=== PATIENT | male | born 1975 | race Caucasian/White ===

== ENCOUNTER 2020-12-19 13:02 | Emergency (ER) | payer SELFPAY ==
[~2020-12-19] VITALS: Ht 180.3 cm; Wt 195.2 kg
[2020-12-19] MEDS ORDERED: IV NORMAL SALINE 1,000ML 1,000 ML IV ONE (13:15)
--- NOTE | 2020-12-19 13:28 | PHYS DOC ---
General Adult EDM: Chief Complaint: CHEST PAIN HPI: HPI: 45-year-old male presents with chest pain. He states that he has been having chest pain since last night. It is an intermittent pain that describes as a cramping on the left side. He denies shortness of breath or diaphoresis. He had more episodes today at work and became concerned so came to emergency room. He also complains of an intermittent electrical type pain in the bottom of his left foot. He has had this for several weeks and it seems to be random. Sometimes it happens when he is walking sometimes it happens when he is just sitting around. He has been taking his medications as prescribed. He denies diabetes. Denies fever or chills. Review of Systems: Review of Systems: Constitutional: Denies fever or chills Eyes: Denies change in visual acuity HENT: Denies nasal congestion or sore throat Respiratory: Denies cough or shortness of breath Cardiovascular: Chest pain GI: Denies abdominal pain, nausea, vomiting, bloody stools or diarrhea : Denies dysuria Musculoskeletal: Left foot pain Integument: Denies rash Neurologic: Denies headache, focal weakness or sensory changes Endocrine: Denies polyuria or polydipsia Lymphatic: Denies swollen glands Psychiatric: Denies depression or anxiety Current Medications: Current Meds: Current Medications Medications (Trade) Dose Ordered Sig/Nilda Start Time Stop Time Status Last Admin Dose Admin Sodium Chloride 1,000 ml @ 1,000 mls/hr 1X ONCE 12/19/20 13:15 12/19/20 14:14 UNV Physical Exam: PE: Constitutional: Well developed, well nourished, morbidly obese, no acute distress, non-toxic appearance. [] HENT: Normocephalic, atraumatic, bilateral external ears normal, oropharynx moist, no oral exudates, nose normal. [] Eyes: PERRLA, EOMI, conjunctiva normal, no discharge. [] Neck: Normal range of motion, no tenderness, supple, no stridor. [] Cardiovascular: Heart rate regular rhythm, no murmur [] Lungs & Thorax: Bilateral breath sounds clear to auscultation [] Abdomen: Bowel sounds normal, soft, no tenderness, no masses, no pulsatile masses. [] Skin: Warm, dry, no erythema, no rash. [] Back: No tenderness, no CVA tenderness. [] Extremities: No tenderness, no cyanosis, no clubbing, ROM intact, no edema. No obvious evidence of a problem with the left foot [] Neurologic: Alert and oriented X 3, normal motor function, normal sensory function, no focal deficits noted. [] Psychologic: Affect normal, judgement normal, mood anxious. [] EKG: EKG: Sinus rhythm, rate 84, normal axis, no ST elevation or depression. [] Radiology/Procedures: Radiology/Procedures: [] Impressions: EXAM: CHEST 1 VIEW History: Chest pain COMPARISON: None available. TECHNIQUE: Single portable radiograph of the chest FINDINGS: The cardiac silhouette is unremarkable. Faint airspace opacities bilateral lungs likely atelectasis or infiltrates. The costophrenic sulci are clear and well demarcated. IMPRESSION: Faint airspace opacities bilateral lungs likely atelectasis or infiltrates. Electronically signed by: Alberto Franks MD (12/19/2020 2:19 PM) [id number] DICTATED AND SIGNED BY: ALBERTO FRANKS MD DATE: 12/19/201416 CC: PADMINI BEAL MD; JANES GONZALEZ DO ~MTH0 0 Heart Score: C/O Chest Pain: Yes HEART Score for Chest Pain: HEART Score for Chest Pain Response (Comments) Value History Slighlty/Non-Suspicious 0 ECG Normal 0 Age < 45 0 Risk Factors 1 or 2 Risk Factors 1 Troponin < Normal Limit 0 Total 1 Risk Factors: Risk Factors: DM, Current or recent (<one month) smoker, HTN, HLP, family history of CAD, obesity. Risk Scores: Score 0 - 3: 2.5% MACE over next 6 weeks - Discharge Home Score 4 - 6: 20.3% MACE over next 6 weeks - Admit for Clinical Observation Score 7 - 10: 72.7% MACE over next 6 weeks - Early Invasive Strategies Course & Med Decision Making: Course & Med Decision Making Pertinent Labs and Imaging studies reviewed. (See chart for details) Patient's EKG is unremarkable. His labs are unremarkable. His troponin is negative. His chest x-ray shows mild possible atelectasis. The patient's labs also do not support the diagnosis of pneumonia. The patient is stable for discharge at this time. [] Dragon Disclaimer: Dragon Disclaimer: This electronic medical record was generated, in whole or in part, using a voice recognition dictation system. Departure Departure: Impression: Primary Impression: Chest pain Qualified Codes: R07.9 - Chest pain, unspecified Disposition: 01 HOME / SELF CARE / HOMELESS Condition: STABLE Referrals: PADMINI BEAL MD (PCP) Patient Instructions: Chest Pain (Nonspecific), [id number] JANES GONZALEZ DO Dec 19, 2020 13:28
[2020-12-19 14:03] VITALS: BP 133/82
[2020-12-19 14:08] LABS: BASO # 0.1 x10^3/uL (0.0-0.2); BASO % 2 % (0-3); EOS # 0.3 x10^3/uL (0.0-0.7); EOS % 3 % (0-3); HEMATOCRIT 42.9 % (39.0-53.0); HEMOGLOBIN 14.6 g/dL (13.0-17.5); LYMPH # 1.3 x10^3/uL (1.0-4.8); LYMPH % 13 % (24-48); MEAN CORPUSCULAR HEMOGLOBIN 30 pg (25-35); MEAN CORPUSCULAR HGB CONC 34 g/dL (31-37); MEAN CORPUSCULAR VOLUME 88 fL (79-100); MONO # 0.6 x10^3/uL (0.0-1.1); MONO % 6 % (0-9); NEUT # 7.7 x10^3uL (1.8-7.7); NEUT % 77 % (31-73); PLATELET COUNT 262 x10^3/uL (140-400); RED BLOOD COUNT 4.87 x10^6/uL (4.30-5.70); RED CELL DISTRIBUTION WIDTH 14.1 % (11.5-14.5); WHITE BLOOD COUNT 10.1 x10^3/uL (4.0-11.0)
--- NOTE | 2020-12-19 14:14 | EKG ---
[address] [address] Test Date: 2020-12-19 Test Time: 13:11:42 Pat Name: HANG CALIXTO Department: Room: Gender: M Director Service: : 1975 Requested By: JANES GONZALEZ Order Number: [id number] Reading MD: Measurements Intervals [place] Rate: 84 P: 38 [place]: 162 QRS: 40 QRSD: 98 T: 54 QT: 354 QTc: 421 Interpretive Statements SINUS RHYTHM NORMAL ECG RI6.02 No previous ECG available for comparison
[2020-12-19 14:15] LABS: CALCIUM 8.9 mg/dL (8.5-10.1); CREATININE 0.7 mg/dL (0.7-1.3); GFR 122.5; POTASSIUM 3.8 mmol/L (3.5-5.1)
[2020-12-19 14:21] LABS: ALBUMIN 3.6 g/dL (3.4-5.0); ALBUMIN/GLOBULIN RATIO 1.1 (1.0-1.7); TOTAL BILIRUBIN 0.4 mg/dL (0.2-1.0); TOTAL PROTEIN 6.9 g/dL (6.4-8.2)
--- NOTE | 2020-12-19 14:22 | RAD ---
EXAM: CHEST 1 VIEW History: Chest pain COMPARISON: None available. TECHNIQUE: Single portable radiograph of the chest FINDINGS: The cardiac silhouette is unremarkable. Faint airspace opacities bilateral lungs likely at electasis or infiltrates. The costophrenic sulci are clear and well demarcated. IMPRESSION: Faint airspace opacities bilateral lungs likely atelectasis or infiltrates. Electronically signed by: Alberto Franks MD (12/19/2020 2:19 PM) [id number]
== END 2020-12-19 15:45 | disposition home or self-care (01) ==
LOC: ER 13:02
DX: R07.89 Other chest pain (principal)
CPT/HCPCS: 36415; 71045; 80053; 84484; 85025; 93005; 96360; 99285; J7030

== ENCOUNTER 2021-01-04 12:32 | Emergency (ER) | payer BC ==
[~2021-01-04] VITALS: Ht 180.3 cm; Wt 194.9 kg
--- NOTE | 2021-01-04 12:57 | PHYS DOC ---
Past History Past Medical History: No Pertinent History (THIEN REYNOLDS APRN) Alcohol Use: None (THIEN REYNOLDS APRN) General Adult EDM: Chief Complaint: CHEST PAIN HPI: HPI: Patient is a 45-year-old male who presents with chest pain for 2 days. Patient reports pain is left chest, sharp and intermittent. Denies taking anything for pain at home. Denies anything making the pain worse or better. Patient states "I did have nitro at home but I did not take it for the pain". Patient is denying shortness of breath. Patient has a history of hypertension, CHF, arrhythmias. (THIEN REYNOLDS APRN) Review of Systems: Review of Systems: Constitutional: Denies fever or chills Eyes: Denies change in visual acuity HENT: Denies nasal congestion or sore throat Respiratory: Reports productive cough, denies shortness of breath Cardiovascular: Reports left-sided chest pain GI: Denies abdominal pain, nausea, vomiting, bloody stools or diarrhea : Denies dysuria Musculoskeletal: Denies back pain or joint pain Integument: Denies rash Neurologic: Denies headache, focal weakness or sensory changes Endocrine: Denies polyuria or polydipsia Lymphatic: Denies swollen glands Psychiatric: Denies depression or anxiety (THIEN REYNOLDS APRN) Allergies: Allergies: Allergies Coded Allergies Type Severity Reaction Last Updated Verified No Known Drug Allergies 12/19/20 No (THIEN REYNOLDS APRN) Physical Exam: PE: Constitutional: Well developed, well nourished, no acute distress, non-toxic appearance. [] HENT: Normocephalic, atraumatic, bilateral external ears normal, oropharynx moist, no oral exudates, nose normal. [] Eyes: PERRLA, EOMI, conjunctiva normal, no discharge. [] Neck: Normal range of motion, no tenderness, supple, no stridor. [] Cardiovascular:Heart rate regular rhythm, no murmur [] Lungs & Thorax: Bilateral breath sounds clear to auscultation [] Abdomen: Bowel sounds normal, soft, no tenderness, no masses, no pulsatile masses. [] Skin: Warm, dry, no erythema, no rash. [] Back: No tenderness, no CVA tenderness. [] Extremities: No tenderness, no cyanosis, no clubbing, ROM intact, no edema. [] Neurologic: Alert and oriented X 3, normal motor function, normal sensory function, no focal deficits noted. [] Psychologic: Affect normal, judgement normal, mood normal. [] (THIEN REYNOLDS APRN) EKG: EKG: [] Sinus rhythm, heart rate 84 bpm. At 1240 Sinus rhythm, heart rate 76 bpm. At 1310 (THIEN REYNOLDS APRN) Radiology/Procedures: Radiology/Procedures: [] (THIEN REYNOLDS APRN) Heart Score: C/O Chest Pain: Yes HEART Score for Chest Pain: HEART Score for Chest Pain Response (Comments) Value History Moderately Suspicious 1 ECG Normal 0 Age < 45 0 Risk Factors 1 or 2 Risk Factors 1 Troponin < Normal Limit 0 Total 2 Risk Factors: Risk Factors: DM, Current or recent (<one month) smoker, HTN, HLP, family history of CAD, obesity. Risk Scores: Score 0 - 3: 2.5% MACE over next 6 weeks - Discharge Home Score 4 - 6: 20.3% MACE over next 6 weeks - Admit for Clinical Observation Score 7 - 10: 72.7% MACE over next 6 weeks - Early Invasive Strategies (THIEN REYNOLDS APRN) Course & Med Decision Making: Course & Med Decision Making Pertinent Labs and Imaging studies reviewed. (See chart for details) [] 45-year-old male presents with chest pain for 2 days. Pain is reported as left sided, sharp, intermittent. Patient reports that she has a prescription for nitro, but denies taking it at home. Patient was reporting chest pain while I was evaluating him. I had a repeat EKG which showed normal sinus rhythm and no changes compared to the first EKG. patient given 324 of aspirin. Tox screen is negative. BNP was 211. Troponin is negative. All other labs unremarkable. Chest x-ray is negative for acute abnormality. Heart score of 2. Discussed results with patient. Instructed patient to call PCP tomorrow make a follow-up appointment for further management and evaluation. Patient is hemodynamically stable and able to ambulate on his own. (REYNOLDSTHIEN Disclaimer: Konrad Disclaimer: This electronic medical record was generated, in whole or in part, using a voice recognition dictation system. (THIEN REYNOLDS APRN) Attending Co-Sign The patient was seen and interviewed as well as examined at the bedside. The chart was reviewed. The case was discussed. Agree with the plan of care. (JANES GONZALEZ DO) Departure Departure: Impression: Primary Impression: Chest pain Qualified Codes: R07.9 - Chest pain, unspecified Disposition: HOME / SELF CARE / HOMELESS Condition: STABLE Referrals: PADMINI BEAL MD (PCP) Patient Instructions: Chest Pain (Nonspecific), [id number] Additional Instructions: You were seen in the emergency room for chest pain. Your troponin was negative. Your EKG was negative. Chest x-ray was negative. Your BNP was slightly elevated at 211. All of your other labs were unremarkable. Please call your PCP in the morning and make a follow-up appointment for further management. Return emergency room if you have worsening symptoms or concerns. EMERGENCY DEPARTMENT GENERAL DISCHARGE INSTRUCTIONS Thank you for coming to [facility] (ED) today and trusting us with you care. We trust that you had a positivie experience in our Emergency Department. If you wish to speak to the department management, you may call the director at [phone]. YOUR FOLLOW UP INSTRUCTIONS ARE FOLLOWS: 1. Do you have a private Doctor? If you do not have a private doctor, please ask for a resource list of physicians or clinics that may be able to assist you with fo llow up care. 2. The Emergency Physician has interpreted your x-rays. The X-Ray specialist will also review them. If there is a change in the findings, you will be notified in 48 hours when at all possible. 3. A lab test or culture has been done, your results will be reviewed and you will be notified if you need a change in treatment. ADDITIONAL INSTRUCTIONS AND INFORMATION: 1. Your care today has been supervised by a physician who is specially trained in emergency care. Many problems require more than one evaluation for a complete diagnosis and treatment. We recommend that you schedule your follow up appointment as recommended to ensure complete treatment of you illness or injury. If you are unable to obtain follow up care and continue to have a problem, or if your condition worsens, we recommend that you return to the ED. 2. We are not able to safely determine your condition over the phone nor are we able to give sound medical advice over the phone. For these safety reasons, if you call for medical advice we will ask you to come to the ED for further evaluation. 3. If you have any questions regarding these discharge instructions please call the ED at [phone]. SAFETY INFORMATION: In the interest of safety, wellness, and injury prevention; we encourage you to wear your sealbelt, if you smoke; quite smoking, and we encourage family to use a protecti ve helmet for bicycling and other sporting events that present an increased risk for head injury. IF YOUR SYMPTOMS WORSEN OR NEW SYMPTOMS DEVELOP, OR YOU HAVE CONCERNS ABOUT YOUR CONDITION; OR IF YOUR CONDITION WORSENS WHILE YOU ARE WAITING FOR YOUR FOLLOW UP APPOINTMENT; EITHER CONTACT YOUR PRIMARY CARE DOCTOR, THE PHYSICIAN WHOSE NAME AND NUMBER YOU WERE GIVEN, OR RETURN TO THE ED IMMEDIATELY. THIEN REYNOLDS APRN Jan 04, 2021 12:57 JANES GONZALEZ DO Jan 05, 2021 06:20
--- NOTE | 2021-01-04 13:12 | RAD ---
Single view chest dated 01/04/2021 1:09 PM: COMPARISON: 12/19/2020 Clinical Indication: Chest pain. Findings: Single upright portable exam of the chest was performed. Lung volumes are low, limiting evaluation. T here is some hazy perihilar opacities could be artifactual. No consolidation or pleural effusion. No pneumothorax.. IMPRESSION: Limited exam. No apparent acute abnormality. Electronically signed by: Tushar Potts MD (01/04/2021 1:10 PM) [id number]
[2021-01-04] MEDS ORDERED: ASPIRIN CHEWABLE 81 MG TABLET. PO ONE (13:15)
[2021-01-04] MEDS ORDERED: NITROGLYCERIN SUBLINGUAL 0.4 MG BOTTLE OF 25. SL PRN (13:15)
[2021-01-04 13:24] LABS: BASO % 0 % (0-3); EOS # 0.3 x10^3/uL (0.0-0.7); EOS % 3 % (0-3); HEMATOCRIT 44.6 % (39.0-53.0); HEMOGLOBIN 15.2 g/dL (13.0-17.5); LYMPH # 1.3 x10^3/uL (1.0-4.8); LYMPH % 13 % (24-48); MEAN CORPUSCULAR HEMOGLOBIN 30 pg (25-35); MEAN CORPUSCULAR HGB CONC 34 g/dL (31-37); MEAN CORPUSCULAR VOLUME 89 fL (79-100); MONO # 0.5 x10^3/uL (0.0-1.1); MONO % 5 % (0-9); NEUT # 7.6 x10^3uL (1.8-7.7); NEUT % 79 % (31-73); PLATELET COUNT 283 x10^3/uL (140-400); RED BLOOD COUNT 5.02 x10^6/uL (4.30-5.70); RED CELL DISTRIBUTION WIDTH 14.3 % (11.5-14.5); WHITE BLOOD COUNT 9.7 x10^3/uL (4.0-11.0)
[2021-01-04 13:38] LABS: CALCIUM 9.1 mg/dL (8.5-10.1); CREATININE 0.7 mg/dL (0.7-1.3); GFR 122.5; POTASSIUM 4.4 mmol/L (3.5-5.1)
[2021-01-04 13:38] LABS: BARBITURATES NEG (NEG); BENZODIAZEPINES NEG (NEG); CANNABINOIDS NEG (NEG); COCAINE NEG (NEG); METHADONE NEG (NEG); OPIATES NEG (NEG); PHENCYCLIDINE NEG (NEG)
[2021-01-04 13:39] LABS: AMPHETAMINE/METHAMPHETAMINE NEG (NEG)
[2021-01-04 13:51] LABS: ALBUMIN/GLOBULIN RATIO 1.5 (1.0-1.7); MAGNESIUM 1.9 mg/dL (1.8-2.4); TOTAL BILIRUBIN 0.4 mg/dL (0.2-1.0); TOTAL PROTEIN 6.6 g/dL (6.4-8.2)
[2021-01-04 14:07] LABS: BILIRUBIN,URINE NEG (NEG); CLARITY,URINE CLEAR; COLOR,URINE YELLOW; GLUCOSE,URINE NEG (NEG); NITRITE,URINE NEG (NEG); UROBILINOGEN,URINE 0.2 mg/dL (0.2 mg/dL)
[2021-01-04 14:08] LABS: RBC,URINE OCC /HPF (0-2)
[2021-01-04 14:09] LABS: BACTERIA,URINE 0 /HPF (0-FEW); SQUAMOUS EPITHELIAL CELL,UR FEW /LPF; WBC,URINE OCC /HPF (0-4)
[2021-01-04 15:07] VITALS: BP 129/80
--- NOTE | 2021-01-05 06:28 | EKG ---
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
--- NOTE | 2021-01-05 06:29 | EKG ---
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
== END 2021-01-04 15:12 | disposition home or self-care (01) ==
LOC: ER 12:32
DX: R07.89 Other chest pain (principal); R05 Cough; I11.0 Hypertensive heart disease with heart failure; I50.9 Heart failure, unspecified
CPT/HCPCS: 36415; 71045; 80053; 80307; 81001; 83735; 83880; 84484; 85025; 93005; 99285

== ENCOUNTER 2021-01-13 12:07 | Observation (INO) | payer BC ==
[~2021-01-13] VITALS: Ht 180.3 cm; Wt 197.8 kg
[2021-01-13] MEDS ORDERED: ASPIRIN CHEWABLE 81 MG TABLET. PO ONE (12:15)
[2021-01-13] MEDS ORDERED: NITROGLYCERIN SUBLINGUAL 0.4 MG BOTTLE OF 25. SL PRN (13:00)
--- NOTE | 2021-01-13 13:00 | RAD ---
EXAM: Chest, single view. HISTORY: Chest pain. COMPARISON: None. FINDINGS: A frontal view of the chest is obtained. There is stable diffuse central predominant increa sed interstitial opacity. There is no consolidation, pleural effusion or pneumothorax. There is a sta ble prominent cardiac silhouette. IMPRESSION: Stable central predominant increased interstitial opacity suggesting interstitial infiltr ate. Electronically signed by: Dayana Fernandes MD (01/13/2021 12:58 PM) [id number]
--- NOTE | 2021-01-13 13:13 | EKG ---
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
[2021-01-13 13:22] LABS: BASO # 0.1 x10^3/uL (0.0-0.2); BASO % 1 % (0-3); EOS # 0.3 x10^3/uL (0.0-0.7); EOS % 4 % (0-3); HEMATOCRIT 41.3 % (39.0-53.0); HEMOGLOBIN 14.2 g/dL (13.0-17.5); LYMPH # 1.5 x10^3/uL (1.0-4.8); LYMPH % 17 % (24-48); MEAN CORPUSCULAR HEMOGLOBIN 30 pg (25-35); MEAN CORPUSCULAR HGB CONC 34 g/dL (31-37); MEAN CORPUSCULAR VOLUME 88 fL (79-100); MONO # 0.6 x10^3/uL (0.0-1.1); MONO % 7 % (0-9); NEUT # 6.2 x10^3uL (1.8-7.7); NEUT % 72 % (31-73); PLATELET COUNT 283 x10^3/uL (140-400); RED BLOOD COUNT 4.68 x10^6/uL (4.30-5.70); RED CELL DISTRIBUTION WIDTH 14.3 % (11.5-14.5); WHITE BLOOD COUNT 8.6 x10^3/uL (4.0-11.0)
[2021-01-13 13:31] LABS: CALCIUM 8.7 mg/dL (8.5-10.1); CREATININE 0.6 mg/dL (0.7-1.3); GFR 146.4
[2021-01-13 13:44] LABS: ALBUMIN 3.5 g/dL (3.4-5.0); ALBUMIN/GLOBULIN RATIO 1.4 (1.0-1.7); TOTAL BILIRUBIN 0.2 mg/dL (0.2-1.0)
--- NOTE | 2021-01-13 14:48 | PHYS DOC ---
Past History Past Medical History: No Pertinent History Additional Past Medical Histor: CHF POSSIBLY, PER PT Past Surgical History: No Surgical History Alcohol Use: None Adult General Chief Complaint Chief Complaint: CHEST PAIN HPI HPI Patient is a 45-year-old male with past medical history of hypertension and congestive heart failure who presents to the emergency room complaining of substernal chest pressure. Patient states it feels like there is across s ettings on his chest. He gets intermittent shortness of breath. This started this morning. He has had previous episodes like this as well. He states that his legs are swollen. He denies any cough, congestion, fever, chills, sweats. Pain is constant and nothing seems to make it better or worse. Review of Systems Review of Systems Complete ROS is negative unless otherwise documented in HPI Current Medications Current Medications Current Medications Medications (Trade) Dose Ordered Sig/Nilda Start Time Stop Time Status Last Admin Dose Admin Aspirin (Aspirin Chewable) 324 mg 1X ONCE 01/13/21 12:15 01/13/21 12:16 DC 01/13/21 12:44 324 MG Nitroglycerin (Nitrostat) 0.4 mg PRN Q5MIN PRN 01/13/21 13:00 01/13/21 13:57 0.4 MG Allergies Allergies Allergies Coded Allergies Type Severity Reaction Last Updated Verified No Known Drug Allergies 12/19/20 No Physical Exam Physical Exam General: Awake, alert, NAD. Well Nourished, well hydrated. Cooperative, morbid obesity HEENT: Atraumatic, EOMI, PERRL, airway patent, moist oral mucosa Neck: Supple, trachea midline Respiratory: CTA bilaterally, normal effort, no wheezing/crackles CV: RRR, no murmur, cap refill <2, 3+ pitting edema GI: Soft, nondistended, nontender, no masses MSK: No obvious deformities Skin: Warm, dry, intact Neuro: A&O x3, speech NL, sensory and motor grossly intact, no focal deficits Psych: Normal affect, normal mood, not suicidal or homicidal Current Patient Data Vital Signs Vital Signs Date Time Temp Pulse Resp B/P (MAP) Pulse Ox O2 Delivery O2 Flow Rate FiO2 01/13/21 13:57 100 151/102 01/13/21 12:18 98.1 26 96 Room Air Lab Results Laboratory Tests Test 01/13/21 12:57 White Blood Count 8.6 x10^3/uL (4.0-11.0) Red Blood Count 4.68 x10^6/uL (4.30-5.70) Hemoglobin 14.2 g/dL (13.0-17.5) Hematocrit 41.3 % (39.0-53.0) Mean Corpuscular Volume 88 fL (79-100) Mean Corpuscular Hemoglobin 30 pg (25-35) Mean Corpuscular Hemoglobin Concent 34 g/dL (31-37) Red Cell Distribution Width 14.3 % (11.5-14.5) Platelet Count 283 x10^3/uL (140-400) Neutrophils (%) (Auto) 72 % (31-73) Lymphocytes (%) (Auto) 17 % (24-48) L Monocytes (%) (Auto) 7 % (0-9) Eosinophils (%) (Auto) 4 % (0-3) H Basophils (%) (Auto) 1 % (0-3) Neutrophils # (Auto) 6.2 x10^3uL (1.8-7.7) Lymphocytes # (Auto) 1.5 x10^3/uL (1.0-4.8) Monocytes # (Auto) 0.6 x10^3/uL (0.0-1.1) Eosinophils # (Auto) 0.3 x10^3/uL (0.0-0.7) Basophils # (Auto) 0.1 x10^3/uL (0.0-0.2) Sodium Level 144 mmol/L (136-145) Potassium Level 4.0 mmol/L (3.5-5.1) Chloride Level 108 mmol/L (98-107) H Carbon Dioxide Level 28 mmol/L (21-32) Anion Gap 8 (6-14) Blood Urea Nitrogen 16 mg/dL (8-26) Creatinine 0.6 mg/dL (0.7-1.3) L Estimated GFR (Cockcroft-Gault) 146.4 BUN/Creatinine Ratio 27 (6-20) H Glucose Level 111 mg/dL (70-99) H Calcium Level 8.7 mg/dL (8.5-10.1) Total Bilirubin 0.2 mg/dL (0.2-1.0) Aspartate Amino Transferase (AST) 18 U/L (15-37) Alanine Aminotransferase (ALT) 39 U/L (16-63) Alkaline Phosphatase 80 U/L (46-116) Troponin I Quantitative < 0.017 ng/mL (0-0.055) PQ-Atu-W-Type Natriuretic Peptide 227 pg/mL (0-124) H Total Protein 6.0 g/dL (6.4-8.2) L Albumin 3.5 g/dL (3.4-5.0) Albumin/Globulin Ratio 1.4 (1.0-1.7) EKG EKG [] Radiology/Procedures Radiology/Procedures [] Heart Score C/O Chest Pain: Yes HEART Score for Chest Pain: HEART Score for Chest Pain Response (Comments) Value History Highly Suspicious 2 ECG Normal 0 Age < 45 0 Risk Factors >3 Risk Factors or Hx CAD 2 Troponin < Normal Limit 0 Total 4 Risk Factors: Risk Factors: DM, Current or recent (<one month) smoker, HTN, HLP, family history of CAD, obesity. Risk Scores: Risk Factors: DM, Current or recent (<one month) smoker, HTN, HLP, family history of CAD, obesity. Course & Med Decision Making Course & Med Decision Making Pertinent Labs and Imaging studies reviewed. (See chart for details) Patient is a 45 year-old male who presents to the Emergency Room complaining of chest pain and intermittent shortness of breath. History is significant for congestive heart failure. At this time, given patient's risk factors and story there is concern for possible cardiac pathology. EKG was ordered and shows normal sinus rhythm. At this time there is no signs of STEMI, pericarditis, or unstable arrthymia on EKG. Patient has received aspirin today. CBC, BMP, troponin, CXR were ordered to evaluate for causes of chest pain including ACS, anemia, electrolyte abnormalities that can lead to arrhythmias, PTX, pneumonia, pneumomediastinum. Patient does not have any abdominal tenderness that would suggest pancreaititis or cholecystitis and does not need an abdominal work up at this time. Patient's HEART score is 4 placing the patient at moderate risk. Work-up is unremarkable. Pain is better with nitro. Will admit patient for cardiac evaluation to Dr. Mukul Silvestre Disclaimer Konrad Disclaimer This electronic medical record was generated, in whole or in part, using a voice recognition dictation system. Departure Departure: Impression: Primary Impression: Chest pain Disposition: ADMITTED INPATIENT Condition: STABLE Referrals: PADMINI BEAL MD (PCP) IRVIN THORNTON MD Jan 13, 2021 14:48
[2021-01-13 16:18] VITALS: BP 143/89
[2021-01-13] MEDS ORDERED: METO25TA4 PO (16:43)
[2021-01-13] MEDS ORDERED: FURO40TA4 PO (16:43)
[2021-01-13] MEDS ORDERED: ATOR20TA58 PO (16:43)
[2021-01-13] MEDS ORDERED: LISI1TAB37 PO (16:43)
--- NOTE | 2021-01-13 19:46 | HP ---
ADMIT DATE: 01/13/2021 HISTORY OF PRESENT ILLNESS: The patient is a 45-year-old male patient who presented to the Emergency Room of [facility] with a complaint of chest pain that is substernal, rated about 9/10 in severity, associated with some nausea and shortness of breath and diaphoresis, although the patient stated that he is always short of breath and he is always sweating. Denied any radiation. He was apparently given 1 sublingual nitroglycerin and his pain has resolved. The patient stated that he was sitting actually, watching movies when this started. He apparently has had previous episodes like this as well. He also complained of some dizziness, but he stated that this has been there before whenever he stands up quickly. He was extensively investigated in the Emergency Room and has had an EKG as well as has a set of cardiac enzymes, which showed troponin to be less than 0.017. The patient was admitted to do 2 more sets of cardiac enzymes, check his fasting lipid profile and consult the Cardiology team, as he has hypertension and hyperlipidemia. PAST MEDICAL HISTORY: Significant for hypertension and hyperlipidemia. PAST SURGICAL HISTORY: Significant for teeth extraction. ALLERGIES: Has no known drug allergies. MEDICATIONS: He is currently on following medications: He is on atorvastatin calcium 20 mg once a day, metoprolol tartrate 25 mg twice a day, lisinopril/hydrochlorothiazide 20/12.5 once a day, and furosemide 40 mg once a day. FAMILY HISTORY: He has 3 brothers and 1 sister, all healthy. His father is still alive, but does not know much about him. His mother is still alive and is currently on hospice. SOCIAL HISTORY: He is single, never , has no children. He does not smoke, drink alcohol, or use recreational drugs. He works in a [employer] section of [id number] REVIEW OF SYSTEMS: As per history of present illness. PHYSICAL EXAMINATION: GENERAL: On arrival to the emergency room, he looked well and was clearly in no apparent respiratory distress. No pallor, jaundice, cyanosis, or thyromegaly. No jugular venous distention. No limb edema. VITAL SIGNS: His heart rate was 72, blood pressure 143/97, temperature was 98.1, respiratory rate was 24, oxygen saturation was 95% on room air. HEAD, EYES, EARS, NOSE, AND THROAT: Normocephalic, atraumatic. NECK: Supple. HEART: Showed normal first and second heart sounds. No gallop or murmur. CHEST: Clear to auscultation. No crepitation or rhonchi. ABDOMEN: Distended, soft, nontender. NEUROLOGIC: He was grossly intact. LABORATORY DATA: On admission showed a white cell count of 8600, hemoglobin 14, hematocrit 41, MCV 88 and platelet count 283,000 with a normal manual differential. His chemistry showed a serum sodium 144, potassium 4, chloride 108, bicarbonate 28, anion gap of 8, BUN 16, creatinine 0.6. Estimated GFR was 146 mL per minute. His glucose was 111, calcium was 8.7. Total bilirubin, AST, ALT, alkaline phosphatase were normal. Total protein was 6, albumin 3.5. His chest x-ray showed the patient has stable central predominant increased interstitial opacities suggesting interstitial infiltrate. ASSESSMENT AND PLAN: In summary, this is a 45-year-old male patient who presented with retrosternal chest pain rated about 9/10 in severity, associated with nausea, but no vomiting, shortness of breath, and diaphoresis. The pain apparently, according to the patient, has resolved with 1 sublingual nitroglycerin. The patient has other risk factors for coronary artery disease. He is known to have hypertension, hyperlipidemia and apparently is known to have heart failure. His EKG showed normal sinus rhythm, no evidence of ST segment elevation or depression. We will do 2 more sets of cardiac enzymes, check fasting lipid profile and consult the Cardiology team. BOO/MARCIO/JORDAN DR: Rolando TID: [id number]
[2021-01-13 19:59] VITALS: BP 116/74
[2021-01-13] MEDS: METOPROLOL TART IMMED RELEASE 25 MG TABLET. PO SCH (21:45)
[2021-01-13 22:45] VITALS: BP 143/84
[2021-01-14] MEDS ORDERED: ACETAMINOPHEN 325 MG TABLET PO PRN (01:45)
[2021-01-14 05:59] VITALS: BP 151/84
[2021-01-14 07:26] LABS: CREATININE 0.7 mg/dL (0.7-1.3); GFR 122.5; POTASSIUM 4.1 mmol/L (3.5-5.1)
[2021-01-14 07:37] LABS: CALCIUM 8.5 mg/dL (8.5-10.1)
[2021-01-14 08:05] VITALS: BP 118/72
[2021-01-14] MEDS: METOPROLOL TART IMMED RELEASE 25 MG TABLET. PO SCH (08:31)
--- NOTE | 2021-01-14 08:39 | PDOC2 ---
CARDIAC CONSULT DATE OF CONSULT DOS: DATE: 01/14/21 TIME: 08:36 REASON FOR CONSULT Reason for Consult Chest pain REFERRING PHYSICIAN Referring Physician Dr. Gilman SOURCE Source: Chart review, Patient HPI History of Present Illness This is a 45 yo male who presented secondary to pain/pressure. Patients reports intermittent pain in the left chest over the last couple of months. Pain generally occurs at rest. Does not usually occur with exertional activites. Du ration varies lasting minutes to occasionally half the day. No associated with dizziness, diaphoresis, or SOA. Does occasionally get tingling in the left hand and bilateral feet with pain. No specific worsening or relieving factors. Generally resolved without intervention. PAST MEDICAL HISTORY Cardiovascular: HTN, hyperipidemia PAST SURGICAL HISTORY Past Surgical History: No pertinent history FAMILY HISTORY Family History: Diabetes, Heart Disease SOCIAL HISTORY Smoke: No ALCOHOL: none Drugs: None Lives: with Family CURRENT MEDICATIONS Current Medications Current Medications Aspirin (Aspirin Chewable) 324 mg 1X ONCE PO Last administered on 01/13/21at 12:44; Start 01/13/21 at 12:15; Stop 01/13/21 at 12:16; Status DC Nitroglycerin (Nitrostat) 0.4 mg PRN Q5MIN PRN SL CHEST PAIN Last administered on 01/13/21at 13:57; Start 01/13/21 at 13:00 Atorvastatin Calcium (Lipitor) 20 mg DAILY PO Last administered on 01/14/21at 08:31; Start 01/14/21 at 09:00 Furosemide (Lasix) 40 mg DAILY PO Last administered on 01/14/21at 08:32; Start 01/14/21 at 09:00 Metoprolol Tartrate (Lopressor) 25 mg BID PO Last administered on 01/14/21at 08:31; Start 01/13/21 at 21:00 Lisinopril (Prinivil) 40 mg DAILY PO Last administered on 01/14/21at 08:32; Start 01/14/21 at 09:00 Hydrochlorothiazide (Hydrodiuril) 25 mg DAILY PO Last administered on 01/14/21at 08:32; Start 01/14/21 at 09:00 Acetaminophen (Tylenol) 650 mg PRN Q6HRS PRN PO MILD PAIN / TEMP > 100.3'F Last administered on 01/14/21at 01:41; Start 01/14/21 at 01:45 Active Scripts Active Reported Furosemide 40 Mg Tablet 1 Tab PO DAILY Lisinopril-Hctz 20-12.5 Mg Tab (Lisinopril/Hydrochlorothiazide) 1 Each Tablet 2 Tab PO DAILY Atorvastatin Calcium 20 Mg Tablet 1 Tab PO DAILY Metoprolol Tartrate 25 Mg Tablet 1 Tab PO BID ALLERGIES Allergies: Coded Allergies: No Known Drug Allergies (Unverified , 12/19/20) ROS Review of Systems 14 point ROS conducted with pertinent positives noted above in HPI PHYSICAL EXAM General: Alert, Oriented X3, Cooperative, No acute distress HEENT: Atraumatic Lungs: Other (diminished bases) Heart: Regular rate Abdomen: Soft, Other (obese ) Extremities: Other (trace bilateral LE edema ) Skin: No rashes, No breakdown Neuro: Normal speech, Sensation intact Psych/Mental Status: Mental status NL, Mood NL MUSCULOSKELETAL: No deformity VITALS Vital Signs Vital Signs Date Time Temp Pulse Resp B/P (MAP) Pulse Ox O2 Delivery O2 Flow Rate FiO2 01/14/21 08:32 68 118/72 01/14/21 08:05 98.0 20 91 Room Air LABS LABS Laboratory Tests Test 01/13/21 12:57 01/13/21 18:25 01/13/21 21:50 01/14/21 06:50 White Blood Count 8.6 x10^3/uL (4.0-11.0) Red Blood Count 4.68 x10^6/uL (4.30-5.70) Hemoglobin 14.2 g/dL (13.0-17.5) Hematocrit 41.3 % (39.0-53.0) Mean Corpuscular Volume 88 fL (79-100) Mean Corpuscular Hemoglobin 30 pg (25-35) Mean Corpuscular Hemoglobin Concent 34 g/dL (31-37) Red Cell Distribution Width 14.3 % (11.5-14.5) Platelet Count 283 x10^3/uL (140-400) Neutrophils (%) (Auto) 72 % (31-73) Lymphocytes (%) (Auto) 17 % (24-48) Monocytes (%) (Auto) 7 % (0-9) Eosinophils (%) (Auto) 4 % (0-3) Basophils (%) (Auto) 1 % (0-3) Neutrophils # (Auto) 6.2 x10^3uL (1.8-7.7) Lymphocytes # (Auto) 1.5 x10^3/uL (1.0-4.8) Monocytes # (Auto) 0.6 x10^3/uL (0.0-1.1) Eosinophils # (Auto) 0.3 x10^3/uL (0.0-0.7) Basophils # (Auto) 0.1 x10^3/uL (0.0-0.2) Sodium Level 144 mmol/L (136-145) 144 mmol/L (136-145) Potassium Level 4.0 mmol/L (3.5-5.1) 4.1 mmol/L (3.5-5.1) Chloride Level 108 mmol/L (98-107) 108 mmol/L (98-107) Carbon Dioxide Level 28 mmol/L (21-32) 30 mmol/L (21-32) Anion Gap 8 (6-14) 6 (6-14) Blood Urea Nitrogen 16 mg/dL (8-26) 13 mg/dL (8-26) Creatinine 0.6 mg/dL (0.7-1.3) 0.7 mg/dL (0.7-1.3) Estimated GFR (Cockcroft-Gault) 146.4 122.5 BUN/Creatinine Ratio 27 (6-20) Glucose Level 111 mg/dL (70-99) 104 mg/dL (70-99) Calcium Level 8.7 mg/dL (8.5-10.1) 8.5 mg/dL (8.5-10.1) Total Bilirubin 0.2 mg/dL (0.2-1.0) Aspartate Amino Transf (AST/SGOT) 18 U/L (15-37) Alanine Aminotransferase (ALT/SGPT) 39 U/L (16-63) Alkaline Phosphatase 80 U/L (46-116) Troponin I Quantitative < 0.017 ng/mL (0-0.055) < 0.017 ng/mL (0-0.055) < 0.017 ng/mL (0-0.055) JR-Lel-Q-Type Natriuretic Peptide 227 pg/mL (0-124) Total Protein 6.0 g/dL (6.4-8.2) Albumin 3.5 g/dL (3.4-5.0) Albumin/Globulin Ratio 1.4 (1.0-1.7) ASSESSMENT/PLAN Assessment/Plan 1. Chest pain, mixed features; AMI ruled out. EKG without significant acute changes 2. Accelerated hypertension; now controlled 3. Hyperlipidemia; statin 4. Morbid obesity Recommendations Add ASA Continue statin, BB Lasix therapy Will arranged outpatient ischemic evaluation and follow up EVERETTE JAUREGUI APRN Jan 14, 2021 08:39
[2021-01-14] MEDS ORDERED: FUROSEMIDE 40 MG TABLET PO SCH (09:00)
[2021-01-14] MEDS ORDERED: ATORVASTATIN CALCIUM 20 MG TABLET PO SCH (09:00)
[2021-01-14] MEDS ORDERED: hydroCHLOROthiazide 25 MG TABLET. PO SCH (09:00)
[2021-01-14] MEDS ORDERED: LISINOPRIL 20 MG TABLET PO SCH (09:00)
[2021-01-14 11:24] VITALS: BP 129/68
[2021-01-14] MEDS ORDERED: ASPI-889 PO (13:20)
--- NOTE | 2021-01-14 21:10 | DS ---
DATE OF DISCHARGE: 01/14/2021 HOSPITAL COURSE: The patient is a 45-year-old male patient who was admitted with retrosternal chest pain. He has had an EKG and 3 sets of cardiac enzymes that ruled out myocardial infarction. He was seen by the typing element machine operator and the plan is for him to be discharged home with arrangement for outpatient ischemic workup and followup, but with the Cardiology team of [facility] when I saw him this afternoon, he was sitting on the edge of the bed comfortably, in no apparent distress. On questioning him, he denied any complaint. The nursing staff did not voice any concerns, stated that he had an uneventful night. PHYSICAL EXAMINATION: VITAL SIGNS: Heart rate was 57, blood pressure is 129/68, temperature was 97.8, respiratory rate was 20 and oxygen saturation was 92% on room air. The rest of the examination is stable. LABORATORY DATA: Her chemistry showed a serum sodium 144, potassium 4.1, chloride 108, bicarbonate 30, anion gap of 6, BUN 13, creatinine 0.7. Estimated GFR was 122 mL per minute. Her glucose 104, calcium was 8.5. Three sets of cardiac enzymes ruled out myocardial infarction. DISCHARGE MEDICATIONS: The patient could be discharged home to continue on aspirin enteric coated 81 mg once a day, atorvastatin calcium 20 mg at bedtime, furosemide 40 mg once a day, lisinopril/hydrochlorothiazide 2 tablets once a day, metoprolol tartrate 25 mg twice a day. FINAL DISCHARGE DIAGNOSES: Chest pain, acute myocardial infarction ruled out, hypertension, hyperlipidemia, morbid obesity. RIC DR: Rolando TID: [id number]
== END 2021-01-14 14:06 | disposition home or self-care (01) ==
LOC: ER 12:07 → 1 SOUTH 14:48 → ER 15:59
PROVIDERS: ADMIT Internal Medicine; ATTEND Internal Medicine
DX: R07.2 Precordial pain (principal); I11.0 Hypertensive heart disease with heart failure; I50.9 Heart failure, unspecified; E66.01 Morbid (severe) obesity due to excess calories; E78.5 Hyperlipidemia, unspecified; Z83.3 Family history of diabetes mellitus; R42 Dizziness and giddiness
CPT/HCPCS: 36415; 71045; 80048; 80053; 80061; 83880; 84484; 85025; 93005; 99285; G0378; G0379

== ENCOUNTER 2021-01-30 12:57 | Emergency (ER) | payer BC ==
[~2021-01-30] VITALS: Ht 180.3 cm; Wt 187.0 kg
[~2021-01-30 12:57] MED LIST: ASPI-889 PO; ATOR20TA58 PO; FURO40TA4 PO; LISI1TAB37 PO; METO25TA4 PO
[2021-01-30 13:31] LABS: BASO # 0.1 x10^3/uL (0.0-0.2); BASO % 1 % (0-3); EOS # 0.3 x10^3/uL (0.0-0.7); EOS % 3 % (0-3); HEMATOCRIT 47.3 % (39.0-53.0); LYMPH # 1.6 x10^3/uL (1.0-4.8); LYMPH % 15 % (24-48); MEAN CORPUSCULAR HEMOGLOBIN 30 pg (25-35); MEAN CORPUSCULAR HGB CONC 34 g/dL (31-37); MEAN CORPUSCULAR VOLUME 89 fL (79-100); MONO # 0.6 x10^3/uL (0.0-1.1); MONO % 5 % (0-9); NEUT # 8.2 x10^3uL (1.8-7.7); NEUT % 76 % (31-73); PLATELET COUNT 328 x10^3/uL (140-400); RED BLOOD COUNT 5.31 x10^6/uL (4.30-5.70); WHITE BLOOD COUNT 10.8 x10^3/uL (4.0-11.0)
[2021-01-30 13:32] LABS: CALCIUM 9.4 mg/dL (8.5-10.1); CREATININE 0.8 mg/dL (0.7-1.3); POTASSIUM 4.3 mmol/L (3.5-5.1)
--- NOTE | 2021-01-30 13:36 | PHYS DOC ---
Past History Past Medical History: No Pertinent History Additional Past Medical Histor: CHF POSSIBLY, PER PT (MOISÉS MASTERS APRN) Past Surgical History: No Surgical History (MOISÉS MASTERS APRN) Alcohol Use: None (MOISÉS MASTERS APRN) General Adult EDM: Chief Complaint: CHEST PAIN HPI: HPI: Patient is a 45-year-old male who presents to the ER today for left-sided chest pain that started last night. He describes the pain as a stabbing and intermittent pain. He rates it 9 out of 10. It does not radiate. He took ibuprofen prior to arrival. Patient reports that it started when he was laying in bed. Patient is also reporting shortness of breath. He has a history of CAD, CHF, high cholesterol, high pretension. Patient has a stress test scheduled for March 03. Patient denies any lightheadedness, nausea, abdominal pain, vomiting, increased swelling in his lower extremities. (MOISÉS MASTERS APRN) Review of Systems: Review of Systems: 14 body systems of the review of systems have been reviewed. See HPI for pertinent positive and negative responses, otherwise all other systems are negative, nonpertinent or noncontributory (MOISÉS MASTERS APRN) Allergies: Allergies: Allergies Coded Allergies Type Severity Reaction Last Updated Verified No Known Drug Allergies 12/19/20 No (MOISÉS MASTERS APRN) Physical Exam: PE: Constitutional: Well developed, well nourished, no acute distress, non-toxic appearance. [] HENT: Normocephalic, atraumatic Eyes: PERRL, conjunctiva normal, no discharge. [] Neck: Normal range of motion, no stridor Cardiovascular:Heart rate regular rhythm, no murmur, left chest pain reproducible at times [] Lungs & Thorax: Bilateral breath sounds clear to auscultation [] Abdomen: Bowel sounds normal, soft, obese, no tenderness, no masses, no pulsatile masses. [] Skin: Warm, dry, no erythema, no rash. [] Back: Normal range of motion Extremities: No tenderness, no cyanosis, no clubbing, ROM intact, 2+ pitting edema bilateral lower extremities Neurologic: Alert and oriented X 3, normal motor function, normal sensory function, no focal deficits noted. [] Psychologic: Affect normal, judgement normal, mood normal. [] (SONAM,MOISÉS L SENIOR JAVA UI DEVELOPER) Current Patient Data: Labs: Laboratory Tests Test 01/30/21 13:10 White Blood Count 10.8 x10^3/uL Red Blood Count 5.31 x10^6/uL Hemoglobin 16.0 g/dL Hematocrit 47.3 % Mean Corpuscular Volume 89 fL Mean Corpuscular Hemoglobin 30 pg Mean Corpuscular Hemoglobin Concent 34 g/dL Red Cell Distribution Width 14.0 % Platelet Count 328 x10^3/uL Neutrophils (%) (Auto) 76 % Lymphocytes (%) (Auto) 15 % Monocytes (%) (Auto) 5 % Eosinophils (%) (Auto) 3 % Basophils (%) (Auto) 1 % Neutrophils # (Auto) 8.2 x10^3uL Lymphocytes # (Auto) 1.6 x10^3/uL Monocytes # (Auto) 0.6 x10^3/uL Eosinophils # (Auto) 0.3 x10^3/uL Basophils # (Auto) 0.1 x10^3/uL Sodium Level 138 mmol/L Potassium Level 4.3 mmol/L Chloride Level 103 mmol/L Carbon Dioxide Level 27 mmol/L Anion Gap 8 Blood Urea Nitrogen 18 mg/dL Creatinine 0.8 mg/dL Estimated GFR (Cockcroft-Gault) 105.0 Glucose Level 107 mg/dL Calcium Level 9.4 mg/dL Troponin I Quantitative < 0.017 ng/mL Vital Signs: Vital Signs Date Time Temp Pulse Resp B/P (MAP) Pulse Ox O2 Delivery O2 Flow Rate FiO2 01/30/21 13:00 98.6 84 18 139/57 94 Room Air (MOISÉS MASTERS SENIOR JAVA UI DEVELOPER) EKG: EKG: EKG performed by ER staff at 1318 shows sinus rhythm, no STEMI as read by Dr. Richards at 1325. [] (MOISÉS MASTERS SENIOR JAVA UI DEVELOPER) Radiology/Procedures: Radiology/Procedures: PROCEDURE: CHEST AP ONLY AP chest. HISTORY: Chest pain AP view was taken of the chest. The heart is enlarged. There is pulmonary vascular congestion. There is no definite effusion. Hazy in the lungs could be pulmonary edema or mild infiltrates. IMPRESSION: 1. Cardiomegaly with vascular congestion and hazy interstitial infiltrates or e judi. Electronically signed by: Zane Richey MD (01/30/2021 1:46 PM) [id number] DICTATED AND SIGNED BY: ZANE RICHEY MD DATE: 01/30/21 1344 CC: PADMINI BEAL MD; MOISÉS MASTERS APRN ~MTH0 0[] (MOISÉS MASTERS APRN) Heart Score: C/O Chest Pain: Yes HEART Score for Chest Pain: HEART Score for Chest Pain Response (Comments) Value History Moderately Suspicious 1 ECG Normal 0 Age < 45 0 Risk Factors >3 Risk Factors or Hx CAD 2 Troponin < Normal Limit 0 Total 3 Risk Factors: Risk Factors: DM, Current or recent (<one month) smoker, HTN, HLP, family history of CAD, obesity. Risk Scores: Score 0 - 3: 2.5% MACE over next 6 weeks - Discharge Home Score 4 - 6: 20.3% MACE over next 6 weeks - Admit for Clinical Observation Score 7 - 10: 72.7% MACE over next 6 weeks - Early Invasive Strategies (MOISÉS MASTERS APRN) Course & Med Decision Making: Course & Med Decision Making Pertinent Labs and Imaging studies reviewed. (See chart for details) [] Patient is a 45-year-old male being seen in the ER for chest pain. Work-up in the ER consisted of blood work, EKG, chest x-ray. Lab work was unremarkable. Troponin within normal limits. Patient's heart score is 3. Vital signs are stable without tachypnea, no confusion, no hypoxia. Chest x-ray shows possible infiltrate. Also, cardiomegaly similar to previous study. Patient will be treated with an antibiotic. I discussed with patient all findings and diagnostic testing as well as the need to follow-up with PCP for further evaluation and treatment or return to the ER if any new or worsening symptoms. Strict return precautions were also discussed at length. Patient voiced understanding and agreement with the plan. Patient is hemodynamically stable at the time of disposition. (MOISÉS MASTERS APRN) Dragon Disclaimer: Dragon Disclaimer: This electronic medical record was generated, in whole or in part, using a voice recognition dictation system. (MOISÉS MASTERS APRN) Departure Departure: Impression: Primary Impression: Chest pain Qualified Codes: R07.9 - Chest pain, unspecified Additional Impression: Pneumonia Qualified Codes: J18.9 - Pneumonia, unspecified organism Disposition: HOME / SELF CARE / HOMELESS Condition: GOOD Referrals: PADMINI BEAL MD (PCP) Patient Instructions: Pneumonia, Adult Additional Instructions: You were seen in the ER today for chest pain. Your physical exam was reassuring. Your lab work was unremarkable as we discussed. Your chest x-ray shows some pneumonia. To be treated with an antibiotic. Please start and finish antibiotic completely. You can take Tylenol or ibuprofen for pain. Please follow-up with your primary care provider tomorrow regarding your ER visit. Make sure that you follow-up for your stress test as previously scheduled. If your symptoms worsen or you develop severe chest pain, shortness of breath, difficulty breathing, high fevers, severe cough, palpitations please return to the ER immediately. EMERGENCY DEPARTMENT GENERAL DISCHARGE INSTRUCTIONS Thank you for coming to [facility] (ED) today and trusting us with you care. We trust that you had a positivie experience in our Emergency Department. If you wish to speak to the department management, you may call the director at [phone]. YOUR FOLLOW UP INSTRUCTIONS ARE FOLLOWS: 1. Do you have a private Doctor? If you do not have a private doctor, please ask for a resource list of physicians or clinics that may be able to assist you with follow up care. 2. The Emergency Physician has interpreted your x-rays. The X-Ray specialist will also review them. If there is a change in the findings, you will be notified in 48 hours when at all possible. 3. A lab test or culture has been done, your results will be reviewed and you will be notified if you need a change in treatment. ADDITIONAL INSTRUCTIONS AND INFORMATION: 1. Your care today has been supervised by a physician who is specially trained in emergency care. Many problems require more than one evaluation for a complete diagnosis and treatment. We recommend that you schedule your follow up appointment as recommended to ensure complete treatment of you illness or injury. If you are unable to obtain follow up care and continue to have a problem, or if your condition worsens, we recommend that you return to the ED. 2. We are not able to safely determine your condition over the phone nor are we able to give sound medical advice over the phone. For these safety reasons, if you call for medical advice we will ask you to come to the ED for further evaluation. 3. If you have any questions regarding these discharge instructions please call the ED at [phone]. SAFETY INFORMATION: In the interest of safety, wellness, and injury prevention; we encourage you to wear your sealbelt, if you smoke; quite smoking, and we encourage family to use a protective helmet for bicycling and other sporting events that present an increased risk for head injury. IF YOUR SYMPTOMS WORSEN OR NEW SYMPTOMS DEVELOP, OR YOU HAVE CONCERNS ABOUT YOUR CONDITION; OR IF YOUR CONDITION WORSENS WHILE YOU ARE WAITING FOR YOUR FOLLOW UP APPOINTMENT; EITHER CONTACT YOUR PRIMARY CARE DOCTOR, THE PHYSICIAN WHOSE NAME AND NUMBER YOU WERE GIVEN, OR RETURN TO THE ED IMMEDIATELY. Scripts Azithromycin (AZITHROMYCIN TABLET) 250 Mg Tablet 1 PKG PO UD for pneumonia for 5 Days, #6 TAB 0 Refills 2 the first day followed by 1 for days 2-5 Prov: MOISÉS MASTERS APRN 01/30/21 Amoxicillin/Potassium Clav (AUGMENTIN 875-125 TABLET) 1 Each Tablet 1 TAB PO BID for pneumonia for 5 Days, #10 TAB 0 Refills Prov: MOISÉS MASTERS APRN 01/30/21 Attending Signature Attending Signature I have participated in the care of this patient and I have reviewed and agree with all pertinent clinical information above including history, exam, and recommendations. [] Abiola Richards DO (ABIOLA RICHARDS DO) MOISÉS MASTERS APRN Jan 30, 2021 13:36 ABIOLA RICHARDS DO Jan 30, 2021 15:03
--- NOTE | 2021-01-30 13:48 | RAD ---
AP chest. HISTORY: Chest pain AP view was taken of the chest. The heart is enlarged. There is pulmonary vascular congestion. There is no definite effusion. Hazy in the lungs could be pulmonary edema or mild infiltrates. IMPRESSION: 1. Cardiomegaly with vascular congestion and hazy interstitial infiltrates or edema. Electronically signed by: Zane Richey MD (01/30/2021 1:46 PM) [id number]
[2021-01-30] MEDS ORDERED: AZIT250T6 PO (14:06)
[2021-01-30] MEDS ORDERED: AMOX1TAB61 PO (14:06)
[2021-01-30 14:57] VITALS: BP 114/67
--- NOTE | 2021-01-30 21:27 | EKG ---
[address] [address] Test Date: 2021-01-30 Test Time: 13:18:25 Pat Name: HANG CALIXTO Department: Room: Gender: M Circus Laborer: : 1975 Requested By: MOISÉS MASTERS Order Number: [id number] Reading MD: Measurements Intervals [place] Rate: 73 P: 36 OK: 158 QRS: 44 QRSD: 94 T: 61 QT: 360 QTc: 400 Interpretive Statements SINUS RHYTHM NORMAL ECG RI6.02 No previous ECG available for comparison
== END 2021-01-30 14:57 | disposition home or self-care (01) ==
LOC: ER 12:57
DX: J18.9 Pneumonia, unspecified organism (principal); R07.89 Other chest pain; I25.10 Atherosclerotic heart disease of native coronary artery without angina pectoris; I11.0 Hypertensive heart disease with heart failure; I50.9 Heart failure, unspecified; E78.00 Pure hypercholesterolemia, unspecified
CPT/HCPCS: 36415; 71045; 80048; 83880; 84484; 85025; 93005; 99285